=== PATIENT | male | born 2000 | race Caucasian/White ===

== ENCOUNTER 2019-11-15 12:05 | Emergency (ER) | payer MEDICAID ==
[~2019-11-15] VITALS: Ht 160 cm; Wt 57.0 kg
[2019-11-15 12:11] VITALS: BP 119/74
[2019-11-15] MEDS ORDERED: ACET-2708 PO (12:15)
== END 2019-11-15 12:35 | disposition home or self-care (01) ==
LOC: ER 12:05
DX: J98.8 Other specified respiratory disorders (principal); J02.9 Acute pharyngitis, unspecified; R09.81 Nasal congestion
CPT/HCPCS: 99283